=== PATIENT | female | born 2000 | race Caucasian/White ===

== ENCOUNTER 2018-12-31 09:28 | Inpatient (IN) | payer BC ==
[~2018-12-31] VITALS: Ht 170.2 cm; Wt 93.4 kg
[2018-12-31 09:30] VITALS: BP 113/77
[2018-12-31] MEDS: LACTATED RINGERS 1,000 ML IV SCH ×5 (09:47→21:48)
[2018-12-31] MEDS ORDERED: MISOPROSTOL 25 MCG TAB VG PRN (09:50)
[2018-12-31] MEDS ORDERED: METHYLERGONOVINE 0.2 MG/ML AMP IM PRN (09:50)
[2018-12-31] MEDS ORDERED: CARBOPROST 250 MCG/ML AMP IM PRN (09:50)
[2018-12-31] MEDS ORDERED: OXYTOCIN 10 UNITS/ML VIAL IM SCH (09:50)
[2018-12-31] MEDS ORDERED: PREN-380 PO (10:01)
[2018-12-31] MEDS ORDERED: ACETAMINOPHEN 325 MG TAB ONE (11:28)
[2018-12-31] MEDS ORDERED: MISOPROSTOL 25 MCG TAB ONE (11:29)
[2018-12-31 12:00] LABS: BASOPHILS % (AUTO) 0.2 % (0.0-2.0); EOSINOPHILS # (AUTO) 0.1 K/uL (0-0.4); EOSINOPHILS % (AUTO) 0.7 % (0.0-4.0); HEMATOCRIT 37.5 % (36-48); HEMOGLOBIN 12.5 g/dL (12.0-16.0); LYMPHOCYTES # (AUTO) 1.3 K/uL (2.5-16.5); LYMPHOCYTES % (AUTO) 14.9 % (20.5-51.1); MEAN CORPUSCULAR HEMOGLOBIN 29 pg (27-31); MEAN CORPUSCULAR HGB CONC 33 g/dL (33-37); MEAN CORPUSCULAR VOLUME 85.9 fL (80-94); MONOCYTES # (AUTO) 0.6 K/uL (0.8-1.0); MONOCYTES % (AUTO) 6.8 % (1.7-9.3); NEUTROPHILS # (AUTO) 6.5 K/uL (1.8-7.7); NEUTROPHILS % (AUTO) 77.4 % (42.2-75.2); PLATELET COUNT (AUTO) 267 K/uL (140-450); RED BLOOD CELL COUNT(AUTO) 4.36 MIL/uL (4.20-5.40); RED CELL DISTRIBUTION WIDTH 19.8 % (11.6-13.7); WHITE BLOOD COUNT (AUTO) 8.4 K/uL (4.5-11.0)
[2018-12-31 12:08] LABS: APPEARANCE,URINE CLEAR (CLEAR); BILIRUBIN,URINE NEGATIVE (NEGATIVE); BLOOD, URINE 1+ (NEGATIVE); COLOR,URINE YELLOW (YELLOW); LEUKOCYTE ESTERASE ,URINE 1+ (NEGATIVE); NITRITE, URINE NEGATIVE (NEGATIVE); UGLUCOSE NEGATIVE (NEGATIVE)
[2018-12-31 12:09] LABS: ANION GAP 15.9 (8-16); CARBON DIOXIDE 22.1 mmol/L (21-32); CREATININE 0.7 mg/dL (0.6-1.3)
[2018-12-31 12:14] LABS: ALBUMIN 2.6 g/dL (3.4-5.0); TOTAL BILIRUBIN 0.2 mg/dL (0.0-1.0)
[2018-12-31 12:17] LABS: RBC,URINE 0-5 /HPF (0-5)
[2018-12-31] MEDS ORDERED: OXYTOCIN 20 UNITS in LACTATED RINGERS 1,000 ML IV SCH (17:00)
[2018-12-31] MEDS ORDERED: OXYTOCIN 20 UNITS/LR PREMIX 1,000 ML IV ONE (17:03)
[2018-12-31] MEDS ORDERED: NALBUPHINE 10 MG/ML AMP ONE ×2 (18:06→22:19)
[2018-12-31] MEDS: NALBUPHINE 10 MG/ML AMP IVP PRN ×2 (18:16→22:23)
[2018-12-31] MEDS ORDERED: BUPIVACAINE 0.125%/NS PREMIX 250 ML ONE (20:46)
[2018-12-31] MEDS ORDERED: BUPIVACAINE 0.125%/NS PREMIX 250 ML EPI SCH (21:10)
[2018-12-31] MEDS ORDERED: PROMETHAZINE 25 MG/ML VIAL ONE (22:19)
[2018-12-31] MEDS: PROMETHAZINE 25 MG/ML VIAL IVP PRN (22:22)
[2018-12-31] MEDS ORDERED: ROPIVACAINE 0.2%/NS PREMIX 100 ML EPI ONE (23:45)
[2019-01-01] MEDS ORDERED: ROPIVACAINE 0.2%/NS PREMIX 100 ML EPI SCH (00:05)
[2019-01-01] MEDS: LACTATED RINGERS 1,000 ML IV SCH (02:57)
[2019-01-01] MEDS ORDERED: ROPIVACAINE 0.2%/NS PREMIX 100 ML EPI ONE (04:05)
[2019-01-01] MEDS ORDERED: PROMETHAZINE 25 MG/ML VIAL ONE (06:55)
[2019-01-01] MEDS: PROMETHAZINE 25 MG/ML VIAL IVP PRN (06:57)
--- NOTE | 2019-01-01 08:24 | NUR ---
PATIENT HAS BEEN SCREENED AND CATEGORIZED LOW NUTRITION RISK. PATIENT WILL BE SEEN WITHIN 7 DAYS OF ADMISSION. 01/06/[address]
[2019-01-01] MEDS ORDERED: oxyCODONE/APAP 5/325 MG 1 TAB TAB PO PRN (19:55)
[2019-01-01] MEDS ORDERED: ACETAMINOPHEN 325 MG TAB PO PRN (20:10)
[2019-01-02 06:49] LABS: HEMATOCRIT 30.5 % (36-48); HEMOGLOBIN 9.9 g/dL (12.0-16.0)
[2019-01-02] MEDS: IBUPROFEN 800 MG TAB PO PRN ×2 (08:16→22:01)
[2019-01-02] MEDS ORDERED: MEASLES, MUMPS, AND RUBELLA 1 VIAL SQVAC PRN (22:15)
== END 2019-01-03 11:25 | disposition home or self-care (01) | DRG 806 ==
LOC: MFCC 09:28
PROVIDERS: ADMIT Obstetrics & Gynecology; ATTEND Obstetrics & Gynecology
PROC: 10E0XZZ Delivery of Products of Conception, External Approach (ICD-10-PCS; principal; 2019-01-01)
PROC: 10907ZC Drainage of Amniotic Fluid, Therapeutic from Products of Conception, Via Natural or Artificial Opening (ICD-10-PCS; 2019-01-01)
PROC: 0HQ9XZZ Repair Perineum Skin, External Approach (ICD-10-PCS; 2019-01-01)
PROC: 3E0R3BZ Introduction of Anesthetic Agent into Spinal Canal, Percutaneous Approach (ICD-10-PCS; 2019-01-01)
PROC: 00HU33Z Insertion of Infusion Device into Spinal Canal, Percutaneous Approach (ICD-10-PCS; 2019-01-01)
PROC: 3E0P7VZ Introduction of Hormone into Female Reproductive, Via Natural or Artificial Opening (ICD-10-PCS; 2019-01-01)
PROC: 3E0234Z Introduction of Serum, Toxoid and Vaccine into Muscle, Percutaneous Approach (ICD-10-PCS; 2019-01-01)
PROC: 0W8NXZZ Division of Female Perineum, External Approach (ICD-10-PCS; 2019-01-01)
DX: O70.0 First degree perineal laceration during delivery (principal); D62 Acute posthemorrhagic anemia; Z37.0 Single live birth; O36.63X0 Maternal care for excessive fetal growth, third trimester, not applicable or unspecified; Z3A.39 39 weeks gestation of pregnancy; Z23 Encounter for immunization
CPT/HCPCS: 36415; 51702; 59200; 80053; 81001; 85018; 85025; 86592; 86886; 86900; 86901; 87086; 90707; J2300; J2550; J2590; J2795; J3490; J7120

== ENCOUNTER 2022-08-20 15:40 | Emergency (ER) | payer BC, OTHER ==
[~2022-08-20] VITALS: Ht 170.2 cm; Wt 88.5 kg
[~2022-08-20 15:40] MED LIST: PREN-380 PO
[2022-08-20 15:43] VITALS: BP 119/71; PULSE 68; RESP 18; TEMP 98; O2SAT 99
[2022-08-20] MEDS ORDERED: KETOROLAC 30 MG/ML VIAL IM ONE (17:30)
[2022-08-20 17:32] LABS: APPEARANCE,URINE CLEAR (CLEAR); BILIRUBIN,URINE NEGATIVE (NEGATIVE); BLOOD, URINE NEGATIVE (NEGATIVE); COLOR,URINE YELLOW (YELLOW); LEUKOCYTE ESTERASE ,URINE TRACE (NEGATIVE); NITRITE, URINE NEGATIVE (NEGATIVE); UGLUCOSE NEGATIVE (NEGATIVE)
--- NOTE | 2022-08-20 17:45 | NUR ---
Ultrasound at bedside.
[2022-08-20 17:46] LABS: RBC,URINE 0-5 /HPF (0-5)
[2022-08-20] MEDS ORDERED: METR-520 PO (17:49)
--- NOTE | 2022-08-20 18:21 | NUR ---
pt ambulated to chair A, medicated per MD orders
[2022-08-20 18:34] VITALS: BP 120/73; PULSE 65; RESP 20; TEMP 98.1; O2SAT 99
--- NOTE | 2022-08-20 18:34 | NUR ---
Patient discharged with v/s stable. Written and verbal after care instructions given and explained. Patient alert, oriented and verbalized understanding of instructions. Ambulatory with steady gait. All questions addressed prior to discharge. ID band removed. Patient advised to follow up with PMD. Rx of flagyl given. Patient educated on indication of medication including possible reaction and side effects. Opportunity to ask questions provided and answered.
== END 2022-08-20 18:34 | disposition home or self-care (01) ==
LOC: MED 15:40
DX: N76.0 Acute vaginitis (principal); B96.89 Other specified bacterial agents as the cause of diseases classified elsewhere; Z79.899 Other long term (current) drug therapy
CPT/HCPCS: 76856; 81001; 81025; 87086; 87210; 87491; 93976; 96372; 99285; J1885; Q0092